=== PATIENT | female | born 2000 | race Caucasian/White ===

== ENCOUNTER → 2024-10-22 08:21 | Outpatient (BNVA) | payer OTHER, MEDICAID, SELFPAY | PROVIDERS: Visit Provider Nurse Practitioner Women's Health | DX: Z32.01 Encounter for pregnancy test, result positive (principal) | CPT/HCPCS: 81025; 84702; 86850; 86900 ==

== ENCOUNTER → 2024-10-29 08:07 | Outpatient (BNVA) | payer OTHER, SELFPAY | PROVIDERS: Visit Provider Nurse Practitioner Women's Health | DX: Z36.9 Encounter for antenatal screening, unspecified (principal); N83.12 Corpus luteum cyst of left ovary | CPT/HCPCS: 76801 ==

== ENCOUNTER → 2024-11-19 08:30 | Outpatient (BNVA) | payer OTHER, SELFPAY | PROVIDERS: Visit Provider Nurse Practitioner Women's Health | DX: Z34.90 Encounter for supervision of normal pregnancy, unspecified, unspecified trimester (principal); M54.9 Dorsalgia, unspecified | CPT/HCPCS: 80307; 84315; 84443; 86592; 86762; 86803; 87086; 87340; 87491; 87591; 87661; 87806 ==

== ENCOUNTER → 2024-11-22 09:05 | Outpatient (BNVA) | payer OTHER, MEDICAID, SELFPAY | PROVIDERS: Visit Provider Nurse Practitioner Women's Health | DX: Z34.90 Encounter for supervision of normal pregnancy, unspecified, unspecified trimester (principal) | CPT/HCPCS: 84439; 84481 ==

== ENCOUNTER → 2024-12-04 11:16 | Outpatient (BNVA) | payer OTHER, MEDICAID, SELFPAY | PROVIDERS: Visit Provider Obstetrics & Gynecology | DX: Z34.90 Encounter for supervision of normal pregnancy, unspecified, unspecified trimester (principal) | CPT/HCPCS: 84315 ==

== ENCOUNTER 2025-01-06 15:40 | Outpatient (CLI) | payer OTHER, MEDICAID, SELFPAY ==
[2025-01-06] VITALS (9 sets, daily range): BP systolic 126–160; BP diastolic 81–103; PULSE 78–104
[2025-01-06 17:07] LABS: Hematocrit 37.7 % (36-47); Hemoglobin 12.50 g/dL (11.27-16.99); Mean Corpuscular HGB Conc 33.2 g/dL (30-55); Mean Corpuscular Hemoglobin 29.3 pg (27-33); Mean Corpuscular Volume 88.3 fl (85-98); Nucleated Red Blood Cells % 0 %; Platelet Count 321 10^3/cmm (157-399); Red Blood Count 4.27 10^6/uL (3.85-5.65); White Blood Count 14.43 10^3/uL (3.29-11.43)
[2025-01-06 17:10] LABS: Glucose Urine UA Negative (Normal); Nitrate Urine Negative (Negative); Specific Gravity, Urine 1.008 (1.005-1.030)
[2025-01-06 17:12] LABS: Add Urine Microscopic? YES
[2025-01-06 17:22] LABS: Alanine Aminotransferase 10 U/L (0-33); Albumin Level 3.8 g/dL (3.5-5.2); Alkaline Phosphatase 61 U/L (35-105); Anion Gap 16.2 (5-19); Aspartate Amino Transferase 12 U/L (0-32); Blood Urea Nitrogen 15 mg/dL (6-20); Calcium 9.4 mg/dL (8.5-10.5); Carbon Dioxide 22 mmol/L (22-29); Chloride 105 mmol/L (98-107); Creatinine Clr Calc Pharmacy 209.5610; Globulin 3.1 g/dL (1.3-4.6); Glucose 90 mg/dL (65-115); Osmolality Calculated 288 mOsm/kg (285-295); Potassium 4.2 mmol/L (3.5-5.1); Sodium 139 mmol/L (136-145); Total Protein 6.9 g/dL (6.6-8.7); Uric Acid 4.5 mg/dL (2.4-5.7)
[2025-01-06 18:05] LABS: UPRO/UCREAT Ratio 0.13 mg/mg CR
== END 2025-01-06 17:55 | disposition home or self-care (01) ==
LOC: OPOB 15:44 → OBGYN 15:46
PROVIDERS: Visit Provider Obstetrics & Gynecology
DX: O13.9 Gestational [pregnancy-induced] hypertension without significant proteinuria, unspecified trimester (principal); Z3A.00 Weeks of gestation of pregnancy not specified
CPT/HCPCS: 36415; 80053; 81001; 82105; 82570; 84156; 84315; 84550; 85025; 99211

== ENCOUNTER 2025-01-08 08:49 | Outpatient (CLI) | payer OTHER, MEDICAID, SELFPAY ==
[2025-01-08 09:47] LABS: Total Volume, Urine 1850 mL
== END 2025-01-08 08:50 | disposition home or self-care (01) ==
LOC: OPOB 08:50
PROVIDERS: Visit Provider Obstetrics & Gynecology
DX: O26.899 Other specified pregnancy related conditions, unspecified trimester (principal); Z3A.00 Weeks of gestation of pregnancy not specified
CPT/HCPCS: 84156

== ENCOUNTER → 2025-01-22 15:26 | Outpatient (BNVA) | payer OTHER, MEDICAID, SELFPAY | PROVIDERS: Visit Provider Obstetrics & Gynecology | DX: Z34.90 Encounter for supervision of normal pregnancy, unspecified, unspecified trimester (principal) | CPT/HCPCS: 84315 ==

== ENCOUNTER → 2025-02-10 08:26 | Outpatient (BNVA) | payer OTHER, MEDICAID, SELFPAY | PROVIDERS: Visit Provider Nurse Practitioner Women's Health | DX: O16.9 Unspecified maternal hypertension, unspecified trimester (principal) | CPT/HCPCS: 84315 ==

== ENCOUNTER → 2025-02-24 09:34 | Outpatient (BNVA) | payer OTHER, MEDICAID, SELFPAY | PROVIDERS: Visit Provider Obstetrics & Gynecology | DX: O26.899 Other specified pregnancy related conditions, unspecified trimester (principal); Z67.91 Unspecified blood type, Rh negative; O16.9 Unspecified maternal hypertension, unspecified trimester | CPT/HCPCS: 84315 ==

== ENCOUNTER → 2025-03-20 14:57 | Outpatient (BNVA) | payer OTHER, MEDICAID, SELFPAY | PROVIDERS: Visit Provider Nurse Practitioner Women's Health | DX: R80.9 Proteinuria, unspecified (principal) | CPT/HCPCS: 80053; 81000; 82570; 84156; 84550; 85025 ==

== ENCOUNTER 2025-03-22 06:00 | Outpatient (CLI) | payer OTHER, MEDICAID, SELFPAY ==
[2025-03-22 10:46] LABS: Total Volume, Urine 1200 mL
== END 2025-03-22 06:01 | disposition home or self-care (01) ==
LOC: LAB 04-01 10:25
PROVIDERS: Obstetrics & Gynecology; Visit Provider Nurse Practitioner Women's Health
DX: Z34.93 Encounter for supervision of normal pregnancy, unspecified, third trimester (principal); Z3A.28 28 weeks gestation of pregnancy
CPT/HCPCS: 84156

== ENCOUNTER 2025-03-24 09:44 | Outpatient (CLI) | payer OTHER, MEDICAID, SELFPAY ==
[2025-03-24 09:45] VITALS: BMI 38.9
[2025-03-24] MEDS: betamethasone susp 6 mg/mL 5 mL 12 MG IM (10:03)
[2025-03-24 10:10] VITALS: TEMP 36.1
== END 2025-03-24 10:13 | disposition home or self-care (01) ==
LOC: OPOB 09:45
PROVIDERS: Absent Provider Obstetrics & Gynecology; Visit Provider Obstetrics & Gynecology
DX: O26.899 Other specified pregnancy related conditions, unspecified trimester (principal); Z3A.00 Weeks of gestation of pregnancy not specified
CPT/HCPCS: 82950; 84315; 85025; 86850; 96372; 99211; J0702

== ENCOUNTER 2025-03-25 10:07 | Outpatient (CLI) | payer OTHER, MEDICAID, SELFPAY ==
[2025-03-25 10:14] VITALS: BP 139/81; PULSE 108; RESP 17
[2025-03-25 10:15] VITALS: BMI 41.1
[2025-03-25] MEDS: betamethasone susp 6 mg/mL 5 mL 12 MG IM (10:21)
[2025-03-25 10:22] VITALS: BP 139/81; PULSE 108
[2025-03-25 10:26] VITALS: BP 139/81; PULSE 108; RESP 17
== END 2025-03-25 10:25 | disposition home or self-care (01) ==
LOC: OPOB 10:07 → OBGYN 10:08
PROVIDERS: Visit Provider Obstetrics & Gynecology
DX: O26.899 Other specified pregnancy related conditions, unspecified trimester (principal); Z3A.00 Weeks of gestation of pregnancy not specified
CPT/HCPCS: 96372; 99211; J0702